=== PATIENT | male | born 1985 | race Caucasian/White ===

== ENCOUNTER → 2017-04-12 | Outpatient (CLI) | payer OTHER ==
[2017-04-12 10:42] LABS: ALBUMIN 3.8 GM/DL (3.2-5.2); ALBUMIN/GLOBULIN RATIO 1.19 (1.00-1.93); ALKALINE PHOSPHATASE 83 U/L (45-117); ALT/SGPT 29 U/L (12-78); ANION GAP 4 MEQ/L (8-16); AST/SGOT 16 U/L (15-37); BILIRUBIN,TOTAL 0.3 MG/DL (0.2-1.0); BLOOD UREA NITROGEN 10 MG/DL (7-18); CALCIUM LEVEL 8.9 MG/DL (8.5-10.1); CARBON DIOXIDE LEVEL 27 MEQ/L (21-32); CHLORIDE LEVEL 107 MEQ/L (98-107); CHOLESTEROL LEVEL 149 MG/DL (<200); CREATININE FOR GFR 0.77 MG/DL (0.70-1.30); GLOMERULAR FILTRATION RATE > 60.0 (>60); GLUCOSE, FASTING 88 MG/DL (70-105); POTASSIUM SERUM 4.5 MEQ/L (3.5-5.1); SODIUM LEVEL 138 MEQ/L (136-145); TRIGLYCERIDES LEVEL 153 MG/DL (<150)
== END ==
LOC: M LAB 09:01
PROVIDERS: ATTEND Family Medicine Addiction Medicine
DX: Z00.01 Encounter for general adult medical examination with abnormal findings (principal)

== ENCOUNTER 2019-01-18 08:38 | Emergency (ER) | payer OTHER ==
[~2019-01-18] VITALS: Ht 175.3 cm; Wt 115.0 kg
[2019-01-18] MEDS ORDERED: IBUPROFEN 600 MG TAB PO ONE (09:45)
[2019-01-18 10:35] LABS: INFLUENZA A AMPLIFICATION POSITIVE (NEGATIVE); INFLUENZA B AMPLIFICATION NEGATIVE (NEGATIVE)
[2019-01-18] MEDS ORDERED: OSEL75CA PO (10:41)
[2019-01-18 11:04] VITALS: BP 105/58
== END 2019-01-18 11:12 | disposition home or self-care (01) ==
LOC: M ED 08:38
DX: J09.X2 Influenza due to identified novel influenza A virus with other respiratory manifestations (principal); Z72.0 Tobacco use

== ENCOUNTER 2020-04-10 10:57 | Emergency (ER) | payer OTHER ==
[~2020-04-10] VITALS: Ht 175.3 cm; Wt 105.5 kg
[~2020-04-10 10:57] MED LIST: OSEL75CA PO
[2020-04-10] MEDS ORDERED: BOOSTRIX/ADACEL VACCINE (DIPHTH/PERTUSS/ACELL/TETANUS) 0.5ML SYR IM ONE (11:30)
[2020-04-10] MEDS ORDERED: LIDOCAINE 2% MDV 20ML VIAL SC ONE (11:30)
[2020-04-10 12:29] VITALS: BP 125/71
== END 2020-04-10 12:46 | disposition home or self-care (01) ==
LOC: M ED 10:57
DX: S61.311A Laceration without foreign body of left index finger with damage to nail, initial encounter (principal); W26.0XXA Contact with knife, initial encounter; Y92.009 Unspecified place in unspecified non-institutional (private) residence as the place of occurrence of the external cause; Y93.89 Activity, other specified; Y99.8 Other external cause status

== ENCOUNTER 2020-12-23 17:36 | Emergency (ER) | payer OTHER ==
[~2020-12-23] VITALS: Ht 175.3 cm; Wt 113.5 kg
[2020-12-23] MEDS ORDERED: NAPR-837 PO (21:00)
[2020-12-23] MEDS ORDERED: CYCL5TAB PO (21:00)
[2020-12-23] MEDS ORDERED: CYCLOBENZAPRINE 5MG TABLET PO ONE (21:00)
[2020-12-23] MEDS ORDERED: NAPROXEN 250 MG TAB PO ONE (21:00)
--- OUTSIDE RECORDS SUMMARY | 2020-12-23 21:09 | CCD ---
Author Author [facility] Organization [facility] Address Unknown Phone Unavailable Support Name Relationship Address Phone GRETTA ROSS Next Of Kin [address] [place] [address] ALTERI'S XIONG Next Of Kin [address] [place] [address] MODESTOKINARSE Next Of Kin [address] [place] [address] [place] [address] YURY TABOR Next Of [facility] [address] [place] [address] [place] [address] [place] [address] Re-disclosure Warning The records that you are about to access may contain information from federally-assisted alcohol or drug abuse programs. If such information is present, then the following federally mandated warning applies: This information has been disclosed to you from records protected by federal confidentiality rules (42 CFR part 2). The federal rules prohibit you from making any further disclosure of this information unless further disclosure is expressly permitted by the written consent of the person to whom it pertains or as otherwise permitted by 42 CFR part 2. A general authorization for the release of medical or other information is NOT sufficient for this purpose. The Federal rules restrict any use of the information to criminally investigate or prosecute any alcohol or drug abuse patient.The records that you are about to access may contain highly sensitive health information, the redisclosure of which is protected by Article 27-F of the [facility] Public Health law. If you continue you may have access to information: Regarding HIV / AIDS; Provided by facilities licensed or operated by the [facility] Office of Mental Health; or Provided by the [facility] Office for People With Developmental Disabilities. If such information is present, then the following [facility] mandated warning applies: This information has been disclosed to you from confidential records which are protected by state law. State law prohibits you from making any further disclosure of this information without the specific written consent of the person to whom it pertains, or as otherwise permitted by law. Any unauthorized further disclosure in violation of state law may result in a fine or [place] [facility] sentence or both. A general authorization for the release of medical or other information is NOT sufficient authorization for further disc losure. Insurance Providers Payer name Policy type / Coverage type Policy ID Covered constitution party ID Covered constitution party's relationship to hendrickson Policy [place] Plan Information ADALI [id number] SP [id number] ADALI [id number] SP [id number] [employer] [place] P [id number] S [id number] Medicaid S [id number] S [id number] [facility] [id number] SP [id number] [facility] [id number] SP [id number] [facility] COMMUNITY PLAN [facility] [id number] SP [id number] BLUE [employer] PLAN [id number] SP [id number] O BLUE [id number] SP [id number]
[2020-12-23 21:18] VITALS: BP 129/78
== END 2020-12-23 21:19 | disposition home or self-care (01) ==
LOC: M ED 17:36
DX: M54.5 Low back pain (principal); M25.561 Pain in right knee; B07.0 Plantar wart; F17.210 Nicotine dependence, cigarettes, uncomplicated

== ENCOUNTER → 2021-01-23 | Outpatient (CLI) | payer OTHER ==
[~2021-01-23] MED LIST changes: +CYCL5TAB PO; +NAPR-837 PO
--- NOTE | 2021-01-24 03:26 | REPPI ---
INDICATION: [id number] PAIN IN RIGHT KNEE COMPARISON: None. TECHNIQUE: AP, lateral, bilateral oblique and sunrise views right knee. FINDINGS: Mild early tricompartmental degenerative changes include subchondral sclerosis with medial and patellofemoral joint space narrowing as well as cortical irregularity and subtle early spurring primarily noted at the medial and patellofemoral joints. No evidence for acute or healed fracture. No obvious effusion. IMPRESSION: Mild early tricompartmental degenerative changes suggested. <Electronically signed by Rolf Madison > 01/24/21 [id number]
== END ==
LOC: M PLAIMG 15:49
PROVIDERS: ATTEND Family Medicine
DX: M17.11 Unilateral primary osteoarthritis, right knee (principal)

== ENCOUNTER 2021-02-20 08:49 | Outpatient (RCR) | payer OTHER | END 2021-03-07 | LOC: M PT 08:49 | PROVIDERS: ATTEND Orthopaedic Surgery Sports Medicine | DX: M17.11 Unilateral primary osteoarthritis, right knee (principal) ==

== ENCOUNTER → 2021-04-02 | Outpatient (CLI) | payer OTHER ==
--- NOTE | 2021-04-02 11:55 | REP ---
INDICATION: MENISCUS DERANGEMENTS, RT KNEE. COMPARISON: Comparison knee radiographs January 23, 2021.. TECHNIQUE: Axial, coronal, and sagittal imaging planes utilized. T1, proton density and T2 weighted scans are obtained. FINDINGS: There is a small zone of marrow edema in the medial tibial plateau and medial femoral condyle cortical and medullary bone signal intensity are otherwise normal. There is no evidence of Chaney's cyst. No significant joint effusion is seen. There is moderate osteoarthritis of the knee with medial joint space narrowing, medial and lateral osteophyte formation which is well established, and superior pole articular spurring of the patella. There is evidence of a partial tear of of the anterior cruciate ligament. Posterior cruciate ligament appears intact. Patellar and quadriceps tendons have an intact appearance. There is no evidence of medial or lateral collateral ligament disruption. No lateral meniscal tear is seen. There is an extensive degenerative tear of the posterior horn and body of the medial meniscus. There is some medial extrusion of the medial meniscus in the midbody region. Advanced chondromalacia is seen in the medial compartment of the knee with the above reference marrow edema on either side of this narrowed in the joint compartment. No juxta-articular cyst or mass is seen. No vascular abnormality is observed. IMPRESSION: Moderate osteoarthritis of the knee most prominently affecting the medial compartment where there is advanced chondromalacia of the medial femoral condyle and medial tibial plateau. Moderate spurring is seen. Some reactive marrow edema is noted. Extensive degenerative tear of the medial meniscus. Old appearing partial tear of the ACL. <Electronically signed by Danilo Michel > 04/02/21 [id number]
== END ==
LOC: M PLARAD 08:33
PROVIDERS: ATTEND Orthopaedic Surgery Sports Medicine
DX: S83.241A Other tear of medial meniscus, current injury, right knee, initial encounter (principal); M17.11 Unilateral primary osteoarthritis, right knee; M23.303 Other meniscus derangements, unspecified medial meniscus, right knee; X58.XXXA Exposure to other specified factors, initial encounter; Y92.9 Unspecified place or not applicable; Y99.9 Unspecified external cause status

== ENCOUNTER 2021-04-03 10:42 | Outpatient (RCR) | payer OTHER | END 2021-04-07 | LOC: M PT 10:42 | PROVIDERS: ATTEND Orthopaedic Surgery Sports Medicine | DX: M17.11 Unilateral primary osteoarthritis, right knee (principal) ==

== ENCOUNTER 2021-04-10 12:02 | Outpatient (RCR) | payer OTHER | END 2021-05-07 | LOC: M PT 12:02 | PROVIDERS: ATTEND Orthopaedic Surgery Sports Medicine | DX: M17.11 Unilateral primary osteoarthritis, right knee (principal) ==

== ENCOUNTER → 2021-05-16 | Outpatient (CLI) | payer OTHER | LOC: M LABSMTC 11:24 | PROVIDERS: ATTEND Anesthesiology | DX: Z11.52 Encounter for screening for COVID-19 (principal) ==

== ENCOUNTER 2021-05-21 06:57 | Day surgery (SDC) | payer OTHER ==
[~2021-05-21] VITALS: Ht 175.3 cm; Wt 102.0 kg
[~2021-05-21 06:57] MED LIST changes: +LR 1,000 ML IV ONE; +ceFAZolin SOD 2 GM in IV 1 EA IV ONE
[2021-05-21] MEDS ORDERED: MIDAZOLAM INJ 2MG/2ML VIAL (J2250 PER 1MG) As Ordered ONE (07:01)
[2021-05-21] MEDS ORDERED: LIDOCAINE 2% 100MG/5ML SDV (FOR ANES.) As Ordered ONE (07:02)
[2021-05-21] MEDS ORDERED: fentaNYL 100 MCG/2 ML INJECTION (J3010) As Ordered ONE (07:03)
[2021-05-21] MEDS ORDERED: propofoL 200 MG/20 ML VIAL As Ordered ONE ×3 (07:05→09:00)
[2021-05-21] MEDS ORDERED: ROPIvacaine 0.5% 30ML INJECTION (J2795 PER 1MG) As Ordered ONE (08:15)
[2021-05-21] MEDS ORDERED: KETOROLAC 60MG 2ML VIAL As Ordered ONE (08:39)
[2021-05-21] MEDS ORDERED: dexameTHASONE 4 MG/ML 1ML VIAL (J1100 PER 1MG) As Ordered ONE (08:39)
[2021-05-21] MEDS ORDERED: ONDANSETRON 4MG/2ML VIAL As Ordered ONE (08:39)
[2021-05-21] MEDS ORDERED: ACETAMINOPHEN 1000MG 100ML IV BTL (OFIRMEV) (J0131 PER 10MG) As Ordered ONE (08:40)
[2021-05-21] MEDS ORDERED: HYDROmorphone HCL 2 MG/ML 1ML VIAL (J1170) As Ordered ONE (08:50)
[2021-05-21] MEDS ORDERED: ONDANSETRON 4MG/2ML VIAL IV PRN (10:05)
[2021-05-21] MEDS ORDERED: fentaNYL 100 MCG/2 ML INJECTION (J3010) IV PRN (10:05)
[2021-05-21] MEDS ORDERED: oxyCODONE 5MG TAB PO PRN (10:05)
[2021-05-21] MEDS ORDERED: LR 1,000 ML IV SCH (10:05)
[2021-05-21 11:00] VITALS: BP 110/63
--- NOTE | 2021-05-21 13:58 | ROOPDOC ---
[facility] Report Of Operation Report of Operation DATE OF PROCEDURE: 05/21/21 PREPROCEDURE DIAGNOSES: Right knee medial meniscus tear, osteoarthritis, ACL sprain. POSTPROCEDURE DIAGNOSES: Right knee medial meniscus tear, osteoarthritis, ACL tear. PROCEDURE PERFORMED: Right knee arthroscopy, partial medial meniscectomy and debridement. SURGEON: Dr. Bandar Fowler MD DIRECTOR OF CATERING: MD Michael ANESTHESIA: General anesthetic Dr. Acosta ESTIMATED BLOOD LOSS: Approximately 20 mL. COMPLICATIONS: None. REMARKS: None. FINDINGS: Right knee degenerative medial meniscus tear, medial compartment oste oarthritis, ACL tear SPECIMENS REMOVED: None PROCEDURE NOTE: This 36-year-old man had pain in his knee and mechanical symptoms. MRI was consistent with medial compartment osteoarthritis to degenerative medial meniscus tear and an ACL sprain with a stable knee. He wished to go ahead with arthroscopy partial medial meniscectomy and debridement. I explained the pros and cons risks and benefits of this including nonsurgical management. He wished to proceed I marked the right lower extremity. He had no further questions. DESCRIPTION OF PROCEDURE: The patient was brought to the operating room theater. They were placed supine on the operating room table. 2 g of IV Ancef was administered prior to the start of the case. Stress positioner used the patient's right side. 34 inch tourniquet applied to the leg and appropriately padded. All bony prominences padded. Sequential device on the opposite leg. Limb prepped and draped in the usual sterile fashion with chlorhexidine-based prep solution allowing over 3 minutes drying time prior to draping. Preoperative timeout performed to confirm the site patient and surgery. Examination under anesthetic was performed. He did have a weak endpoint with Barbara testing 2+ and a pivot glide 1+. Began by elevating the leg and inflating the tourniquet to 250 mmHg. Made standard anterolateral and anteromedial arthroscopy portals. I performed a thorough diagnostic arthroscopy. Cartilage of the patellofemoral joint and the lateral compartment appeared normal. Medial lateral gutters were normal. ACL did appear to be have a near full-thickness tear from the femoral origin with a empty lateral wall sign. PCL appeared normal. Cartilage on the medial femur did have 1 area mostly at the lateral as well as far posterior weightbearing surfaces grade 3 changes and in some areas grade 4 complete loss. On the medial tibial plateau similarly towards the peripheral rim and posteriorly there is an area of grade 3 and 4 changes. The medial meniscus had degenerative type tears and fraying mostly along the inner free margin in the mid aspect as well as anteriorly and posteriorly. The roots appeared intact. A shaving instruments and duckbill biters to remove the inner one third of the degenerative tear in the meniscus down to stable margins approximately 20% of the overall surface of the meniscus. Arthroscopy pictures were taken throughout and saved onto the system. Tourniquet let down, case terminated. Knee drained of intra-articular fluid. 9 cc of quarter percent Marcaine instilled in and around the incision sites. Wound cleaned with wet and dry dressing follow-up application of Steri-Strips Adaptic 4 x 8 gauze abdominal pad dressing was then overwrapped with sterile 6 inch Best bandage. Patient woken up from the general anesthetic transferred off the operating room table and taken to postanesthetic care unit in stable condition. All sponge needle instrument counts correct no complications estimated blood loss 20 cc. Plan for the patient weightbearing and range of motion as tolerated. Crutches for 2 weeks as needed change dressing postoperative day 1, 2, and as needed. Avoid getting the wound wet for the first 2 weeks. Follow-up in the office in 2 weeks time. Discharge home when they are safely ambulating. Risk factors for harms from taking opioid medications discussed and assessed including but not limited to personal or family history of substance use disorder, anxiety or depression, , age 65 or older, COPD or other underlying respiratory conditions, and renal or hepatic insufficiency. Discussed with patient concerns and determined any harms they may experience or be currently experiencing such as nausea or constipation, feeling sedated or confused, breathing interruptions during sleep, or taking or craving more opioids than prescribed or difficulty controlling use (addiction). Discussed early warning signs of overdose including confusion, sedation, slurred speech, abnormal gait. Postoperative wound instructions were given. It was recommended to keep the wound clean and dry. Dressing changes as needed. It was reinforced with the patient that they should call us or be seen immediately for redness, drainage, or fever. BANDAR FOWLER MD May 21, 2021 13:58
== END 2021-05-21 11:15 | disposition home or self-care (01) ==
LOC: M SDC 06:57
PROVIDERS: ATTEND Orthopaedic Surgery Sports Medicine
DX: M23.303 Other meniscus derangements, unspecified medial meniscus, right knee (principal); M16.11 Unilateral primary osteoarthritis, right hip; S83.511A Sprain of anterior cruciate ligament of right knee, initial encounter; F17.210 Nicotine dependence, cigarettes, uncomplicated; X58.XXXA Exposure to other specified factors, initial encounter
CPT/HCPCS: 29881; J0131; J0690; J1100; J1170; J1885; J2250; J2405; J2795; J3010

== ENCOUNTER → 2021-07-08 | Outpatient (RCR) | payer OTHER ==
[~2021-07-08] MED LIST changes: -LR 1,000 ML IV ONE; -ceFAZolin SOD 2 GM in IV 1 EA IV ONE
== END ==
LOC: M PT 06-12 14:55
PROVIDERS: ATTEND Orthopaedic Surgery Sports Medicine
DX: M25.561 Pain in right knee (principal)

== ENCOUNTER 2021-07-10 14:27 | Outpatient (RCR) | payer OTHER | END 2021-08-07 | LOC: M PT 14:27 | PROVIDERS: ATTEND Orthopaedic Surgery Sports Medicine | DX: M25.561 Pain in right knee (principal) ==

== ENCOUNTER → 2023-09-01 | Outpatient (CLI) | payer OTHER ==
[2023-09-01 17:13] LABS: BASO % 0.6 % (0.0-1.0); EOS # 0.1 10^3/uL (0.0-0.5); EOS % 1.8 % (0.0-3.0); HEMOGLOBIN 15.5 g/dl (13.5-17.5); LYMPH # 2.7 10^3/uL (1.5-5.0); LYMPH % 37.7 % (24.0-44.0); MEAN CORPUSCULAR HEMOGLOBIN 29.5 pg (27.0-33.0); MEAN CORPUSCULAR VOLUME 89.4 fl (80.0-96.0); MONO # 0.6 10^3/uL (0.0-0.8); MONO % 8.6 % (2.0-8.0); NEUTROPHILS # 3.7 10^3/uL (1.5-8.5); PLATELET COUNT, AUTOMATED 260 10^3/uL (150-450); RED BLOOD COUNT 5.26 10^6/uL (4.30-6.10); WHITE BLOOD COUNT 7.2 10^3/uL (4.0-10.0)
[2023-09-01 17:26] LABS: INR 1.08; PROTHROMBIN TIME 13.7 SECONDS (12.5-14.5)
[2023-09-01 17:27] LABS: PARTIAL THROMBOPLASTIN TIME 29.4 SECONDS (24.8-34.2)
[2023-09-01 17:45] LABS: ALKALINE PHOSPHATASE 69 U/L (46-116); ALT/SGPT 17 U/L (7.0-40); AST/SGOT 12 U/L (<34); BILIRUBIN,TOTAL 0.3 MG/DL (0.3-1.2); BLOOD UREA NITROGEN 15 MG/DL (9-23); CALCIUM LEVEL 9.1 MG/DL (8.5-10.1); CARBON DIOXIDE LEVEL 27 MMOL/L (20-31); CHLORIDE LEVEL 107 MMOL/L (98-107); CHOLESTEROL LEVEL 133 MG/DL (<200); CHOLESTEROL RISK RATIO 3.63 (<5); CREATININE FOR GFR 1.05 MG/DL (0.70-1.30); FREE T4 0.95 NG/DL (0.89-1.76); GLOMERULAR FILTRATION RATE > 60.0 (>60); GLUCOSE, FASTING 84 MG/DL (60-100); HDL CHOLESTEROL 36.6 MG/DL (>40); LDL CHOLESTEROL 65.8 MG/DL (<100); NON-HDL-C 96.4 MG/DL; POTASSIUM SERUM 4.4 MMOL/L (3.5-5.1); SODIUM LEVEL 140 MMOL/L (136-145); THYROID STIMULATING HORMONE 1.692 uIU/ML (0.55-4.78); TOTAL 25(OH) VITAMIN D 21.4 NG/ML (20.0-100.0); TOTAL PROTEIN 6.9 G/DL (5.7-8.2); TRIGLYCERIDES LEVEL 153 MG/DL (<150)
[2023-09-01 18:13] LABS: HIV 1&2 SCREEN NEGATIVE (NEGATIVE)
[2023-09-01 18:21] LABS: HEPATITIS C VIRUS ABY INDEX 0.04 INDEX (<0.8)
== END ==
LOC: M LAB 16:43
PROVIDERS: ATTEND Student in an Organized Health Care Education/Training Program
DX: Z00.00 Encounter for general adult medical examination without abnormal findings (principal); E55.9 Vitamin D deficiency, unspecified; Z13.29 Encounter for screening for other suspected endocrine disorder; Z13.1 Encounter for screening for diabetes mellitus; Z11.4 Encounter for screening for human immunodeficiency virus [HIV]; Z11.59 Encounter for screening for other viral diseases; Z13.220 Encounter for screening for lipoid disorders

== ENCOUNTER → 2024-03-03 | Outpatient (CLI) | payer OTHER | LOC: M SOG 08:04 | PROVIDERS: ATTEND Orthopaedic Surgery | DX: M25.561 Pain in right knee (principal) ==

== ENCOUNTER → 2024-07-13 | Outpatient (REF) | payer OTHER | LOC: M SFHCPLAZ 15:36 | PROVIDERS: ATTEND Student in an Organized Health Care Education/Training Program | DX: F17.200 Nicotine dependence, unspecified, uncomplicated (principal); Z79.899 Other long term (current) drug therapy; Z13.220 Encounter for screening for lipoid disorders; Z13.1 Encounter for screening for diabetes mellitus ==

== ENCOUNTER → 2024-07-14 | Outpatient (CLI) | payer OTHER ==
[2024-07-14 10:42] LABS: BASO # 0.1 10^3/uL (0.0-0.2); BASO % 0.7 % (0.0-1.0); EOS # 0.2 10^3/uL (0.0-0.5); EOS % 2.4 % (0.0-3.0); HEMATOCRIT 49.4 % (42.0-52.0); HEMOGLOBIN 16.5 g/dl (13.5-17.5); LYMPH # 2.7 10^3/uL (1.5-5.0); MEAN CORPUSCULAR HGB CONC 33.4 g/dl (32.0-36.5); MEAN CORPUSCULAR VOLUME 92.7 fl (80.0-96.0); MONO # 0.6 10^3/uL (0.0-0.8); MONO % 8.5 % (2.0-8.0); NEUTROPHILS # 3.6 10^3/uL (1.5-8.5); NEUTROPHILS % 50.1 % (36.0-66.0); PLATELET COUNT, AUTOMATED 277 10^3/uL (150-450); RED BLOOD COUNT 5.33 10^6/uL (4.30-6.10); WHITE BLOOD COUNT 7.1 10^3/uL (4.0-10.0)
[2024-07-14 10:53] LABS: HEMOGLOBIN A1c 5.1 % (4.0-6.0)
[2024-07-14 11:02] LABS: ALBUMIN 4.3 G/DL (3.2-5.2); ALKALINE PHOSPHATASE 82 U/L (46-116); ALT/SGPT 22 U/L (7.0-40); AST/SGOT 11 U/L (<34); BILIRUBIN,TOTAL 0.3 MG/DL (0.3-1.2); BLOOD UREA NITROGEN 19 MG/DL (9-23); CALCIUM LEVEL 9.5 MG/DL (8.5-10.1); CARBON DIOXIDE LEVEL 28 MMOL/L (20-31); CHLORIDE LEVEL 111 MMOL/L (98-107); CHOLESTEROL LEVEL 148 MG/DL (<200); CHOLESTEROL RISK RATIO 3.44 (<5); CREATININE FOR GFR 0.77 MG/DL (0.70-1.30); GLOMERULAR FILTRATION RATE > 60.0 (>60); GLUCOSE, FASTING 83 MG/DL (60-100); HDL CHOLESTEROL 42.9 MG/DL (>40); LDL CHOLESTEROL 81.3 MG/DL (<100); NON-HDL-C 105.1 MG/DL; POTASSIUM SERUM 4.8 MMOL/L (3.5-5.1); SODIUM LEVEL 142 MMOL/L (136-145); TOTAL PROTEIN 7.4 G/DL (5.7-8.2); TRIGLYCERIDES LEVEL 119 MG/DL (<150)
== END ==
LOC: M LAB 08:49
PROVIDERS: ATTEND Student in an Organized Health Care Education/Training Program
DX: Z13.220 Encounter for screening for lipoid disorders (principal); F17.200 Nicotine dependence, unspecified, uncomplicated; Z79.899 Other long term (current) drug therapy; Z13.1 Encounter for screening for diabetes mellitus

== ENCOUNTER → 2024-12-18 | Outpatient (CLI) | payer OTHER ==
[~2024-12-18] MED LIST changes: -CYCL5TAB PO; +CYCL5TAB4 PO
== END ==
LOC: M SOG 07:51
PROVIDERS: ATTEND Orthopaedic Surgery
DX: M25.561 Pain in right knee (principal); M23.611 Other spontaneous disruption of anterior cruciate ligament of right knee; M17.11 Unilateral primary osteoarthritis, right knee

== ENCOUNTER → 2025-08-28 | Outpatient (CLI) | payer OTHER ==
[2025-08-28 10:48] LABS: BASO # 0.0 10^3/uL (0.0-0.2); BASO % 0.5 % (0.0-1.0); EOS # 0.1 10^3/uL (0.0-0.5); EOS % 1.8 % (0.0-3.0); LYMPH # 2.4 10^3/uL (1.5-5.0); LYMPH % 30.4 % (24.0-44.0); MONO # 0.7 10^3/uL (0.0-0.8); MONO % 9.1 % (2.0-8.0); NEUTROPHILS # 4.5 10^3/uL (1.5-8.5); NEUTROPHILS % 57.8 % (36.0-66.0); PLATELET COUNT, AUTOMATED 283 10^3/uL (150-450)
[2025-08-28 11:14] LABS: ALT/SGPT 24 U/L (7.0-40); AST/SGOT 24 U/L (<34); CALCIUM LEVEL 9.6 MG/DL (8.5-10.1); CARBON DIOXIDE LEVEL 30 MMOL/L (20-31); CHLORIDE LEVEL 104 MMOL/L (98-107); CHOLESTEROL LEVEL 136 MG/DL (<200); CHOLESTEROL RISK RATIO 3.54 (<5); CK-MB VALUE MASS 3.6 NG/ML (<3.6); CPK CREATINE PHOSPHOKINASE 233 U/L (46-171); CREATININE FOR GFR 0.73 MG/DL (0.70-1.30); GLOMERULAR FILTRATION RATE > 90.0 (>60); LDL CHOLESTEROL 69.2 MG/DL (<100); MB/CK RELATIVE INDEX 1.54 (< OR =4); NON-HDL-C 97.6 MG/DL; POTASSIUM SERUM 5.2 MMOL/L (3.5-5.1); SODIUM LEVEL 141 MMOL/L (136-145); TRIGLYCERIDES LEVEL 142 MG/DL (<150)
[2025-08-28 11:15] LABS: ESTIMATED AVERAGE GLUCOSE 103.0 MG/DL (60-110)
[2025-08-28 11:44] LABS: MYOGLOBIN 89.0 NG/ML (<110)
== END ==
LOC: M PLALAB 08:40
PROVIDERS: ATTEND Physician Assistant Medical
DX: F17.210 Nicotine dependence, cigarettes, uncomplicated (principal)
CPT/HCPCS: 36415; 80053; 80061; 82550; 82553; 83036; 83874; 84484; 85025; G0480